=== PATIENT | female | born 1980 | race Caucasian/White ===

== ENCOUNTER → 2017-04-25 | Outpatient (CLI) | payer OTHER | LOC: FIMAGING 09:49 | PROVIDERS: ATTEND Obstetrics & Gynecology | DX: Z36 Encounter for antenatal screening of mother (principal); O09.522 Supervision of elderly multigravida, second trimester; Q04.8 Other specified congenital malformations of brain; Z3A.23 23 weeks gestation of pregnancy ==

== ENCOUNTER 2017-08-21 07:50 | Inpatient (IN) | payer OTHER ==
[2017-08-21] MEDS ORDERED: LR 1,000 ML IV PRN (07:59)
[2017-08-21] MEDS ORDERED: AMPICILLIN SODIUM 2 GM in NS 100 ML IV ONE (07:59)
[2017-08-21] MEDS ORDERED: TERBUTALINE SULFATE 1 MG/ML VIAL IV PRN (07:59)
[2017-08-21] MEDS ORDERED: EPSOM SALT 454 GM TP PRN (07:59)
[2017-08-21] MEDS ORDERED: OXYTOCIN/RINGERS LACTATE 1,000 ML IV PRN (07:59)
[2017-08-21] MEDS ORDERED: OLIVE OIL 118 ML BTL MISC PRN (07:59)
[2017-08-21] MEDS ORDERED: OXYTOCIN 20 UNIT in LR 1,000 ML IV PRN (08:40)
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
[2017-08-21 08:53] LABS: % IMMATURE GRANULYOCYTES 0.4 % (0.0-1.1); ABSOLUTE IMMATURE GRANULOCYTES 0.06 10^3/uL (0.00-0.10); ADD DIFF? NO; ADD MORPH? NO; ADD SCAN? NO; ATYPICAL LYMPHOCYTE FLAG 0 (0-99); FRAGMENT RBC FLAG 0 (0-99); HEMATOCRIT 40.3 % (38.0-47.0); HEMOGLOBIN 13.5 g/dL (12.6-16.3); LEFT SHIFT FLG 0 (0-99); LIPEMIA HEMOLYSIS FLAG 80 (0-99); MEAN CELL HEMOGLOBIN 28.7 pg (27.9-34.1); MEAN CELL HEMOGLOBIN CONCENTR. 33.5 g/dL (32.4-36.7); MEAN CELL VOLUME 85.6 fL (81.5-99.8); PLATELET CLUMPS FLAG 0 (0-99); PLATELET COUNT 283 10^3/uL (150-400); RED BLOOD CELL COUNT 4.71 10^6/uL (4.18-5.33); RED CELL DISTRIBUTION WIDTH 14.1 % (11.5-15.2)
--- NOTE | 2017-08-21 09:09 | OBPROG ---
Labor Progress Note Assessment/Plan: Assessment: Plan: Subjective/Intrapartum Course: 08/21/17 08:42 patient happy with nitrous oxide which is helping. feeling lots of pressure and urge to push occasionally with contractions. no change in cervix yet. status reassuring. - SVE Dilation (cm): 7 Effacement (%): 90 Station: +1 Membranes: Intact - Contraction Pattern Assessment Current Contraction Pattern: Regular - FHR Assessment [place] FHR (bpm): 140 FHR Pattern Variability: Moderate FHR Category: 1 - AP Antepartum Course: 08/21/17 08:43 initiated care at 9 weeks. dated by lmp equal to 9 week ultrasound. negative innatal and afp. [facility] ultrasound for ? CSP on anatomy US. CPS cleared by [facility] ICD10 Worksheet Patient Problems: Problems Problem Status Onset Normal spontaneous vaginal delivery Acute
--- NOTE | 2017-08-21 09:10 | OBPROG ---
Labor Progress Note Assessment/Plan: Assessment: Plan: Subjective/Intrapartum Course: 08/21/17 08:42 patient happy with nitrous oxide which is helping. feeling lots of pressure and urge to push occasionally with contractions. no change in cervix yet. status reassuring. 08/21/17 09:09 SROM then rapid progress to complete. pushed x 1 ctrx Objective: 08/21/17 08:20 - SVE Dilation (cm): 10 Effacement (%): 100 Station: +3 Membranes: Intact Amniotic Fluid Color: Clear Dilation Complete Date: 08/21/17 Dilation Complete Time: 08:49 - Contraction Pattern Assessment Current Contraction Pattern: Regular - FHR Assessment [place] FHR Pattern Variability: Moderate FHR Category: 1 - AP Antepartum Course: 08/21/17 08:43 initiated care at 9 weeks. dated by lmp equal to 9 week ultrasound. negative innatal and afp. [facility] ultrasound for ? CSP on anatomy US. CPS cleared by [facility] ICD10 Worksheet Patient Problems: Problems Problem Status Onset Normal spontaneous vaginal delivery Acute
[2017-08-21] MEDS ORDERED: DOCUSATE SODIUM 100 MG CAP PO PRN (09:11)
[2017-08-21] MEDS ORDERED: SIMETHICONE 80 MG TAB CHEW PO PRN (09:11)
[2017-08-21] MEDS ORDERED: HYDROCORTISONE 0.5% CREAM TP PRN (09:11)
[2017-08-21] MEDS ORDERED: HYDROCODONE/APAP 5/325 TAB PO PRN (09:11)
--- NOTE | 2017-08-21 09:16 | OBDEL ---
Info Type: Vaginal Presentation at Delivery: Vertex L&D Analgesia/Anesthesia Type: Nitrous GBS+: Yes Antibiotic Used for + GBS: Ampicillin Intrapartum Medications: Discontinued Medications Generic Name Dose Route Start Last Admin Trade Name Chas PRN Reason Stop Dose Admin Ampicillin Sodium 2 gm/ Sodium 110 mls @ 220 mls/hr 08/21/17 07:59 08/21/17 08:20 Chloride IV 08/21/17 08:28 110 mls ONCE ONE Administration Protocol - Hospital Course Intrapartum: 08/21/17 08:42 patient happy with nitrous oxide which is helping. feeling lots of pressure and urge to push occasionally with contractions. no change in cervix yet. status reassuring. 08/21/17 09:09 SROM then rapid progress to complete. pushed x 1 ctrx Indications for Delivery: Spontaneous Labor Vaginal Delivery - Delivery Provider Delivery Physician/CNM: Cristina Shafer - Labor and Delivery Onset of Contractions Date: 08/21/17 Onset of Contractions Time: 04:45 Onset of Contractions Type: Spontaneous Rupture of Membranes Date: 08/21/17 Rupture of Membranes Time: 08:44 Rupture of Membranes Type: Spontaneous Amniotic Fluid Color: Clear Dilation Complete Date: 08/21/17 Dilation Complete Time: 08:49 Placenta Delivery Date: 08/21/17 Placenta Delivery Time: 08:55 Total Hours of Labor: 4 Vaginal Sponge Count Correct: Yes Vaginal Needle Count Correct: Yes Vaginal Sweep Performed: Yes EBL: 100 Delivery Events: Nuchal Cord Delivery Comment: rapid progress to complete. pushed 1 contraction. delivery over an intact perineum. nuchal cord reduced on perineum [place] [facility] [place] Delivery Date: 08/21/17 Delivery Time: 08:51 JUNIOR: 08/21/17 Gestational Age: 40 week(s) and 0 day(s) Sex of : Male Score (1 Min): 8 Score (5 Min): 9 ICD10 Worksheet Patient Problems: Problems Problem Status Onset Normal labor and delivery Acute Normal spontaneous vaginal delivery Acute
[2017-08-21] MEDS: IBUPROFEN 600 MG TAB PO PRN ×3 (09:22→21:46)
[2017-08-21] MEDS ORDERED: AMPICILLIN SODIUM 1 GM in NS 100 ML IV SCH (12:00)
[2017-08-22] MEDS: IBUPROFEN 600 MG TAB PO PRN ×2 (03:47→10:01)
--- NOTE | 2017-08-22 09:18 | OBPP ---
Progress Note Assessment/Plan: Assessment: 37 yo WF PPD#1 s/p doing well. Plan: 08/22/17 09:11 Routine Care. Discharge home tomorrow. Subjective/ Course: 08/22/17 09:12 Ambulating. . Reports minimal lochia. Reports moderate uterine cramping and low-back pain. Objective: 08/21/17 08:20 Patient ABO/Rh A POSITIVE 08/21/17 08:20 Temp Pulse Resp BP Pulse Ox 36.8 C 89 18 136/84 H 95 08/21/17 20:00 08/21/17 20:00 08/21/17 14:25 08/21/17 20:00 08/21/17 12:20 Physical Exam - Physical Exam EENT: PERRL/EOMI Neck: non-tender, supple Respiratory: lungs clear, normal breath sounds Cardiac/Chest: regular rate, rhythm Abdomen: normal bowel sounds, non-tender, soft, other (Fundus firm, below umbilicus) Extremities: normal inspection Skin: normal color Neuro/Psych: oriented x 3
[2017-08-22] MEDS ORDERED: FLU VACC QS 2017-18 (3YR+)/PF 0.5 ML SYR (FLUARIX QUAD) IM ONE (11:56)
--- NOTE | 2017-08-22 12:57 | SOAPPROG ---
SOAP Progress Note Assessment/Plan: Assessment: 37 yo WF PPD#1 s/p doing well. Plan: 08/22/17 09:11 Routine Care. Discharge home tomorrow. 08/22/17 12:57 A/P: 37 yo PPD#1 with generalized malaise. 1. PIH labs, serial BPs 2. Flu swab 3. Supportive care 4. Suggested food with pain meds; consider hydrocodone instead of NSAIDs Subjective: I was called by RN on PP unit because patient reported not feeling well this morning. Akua reports nausea after eating and taking Ibuprofen today. She reports multiple vague complaints. These include diarrhea, back pain, subjective fever. She denies significant headache, vision changes or right upper quadrant pain. Objective: Vital Signs Temp Pulse Resp BP Pulse Ox 36.9 C 76 17 133/89 H 98 08/22/17 09:10 08/22/17 09:10 08/22/17 09:10 08/22/17 12:16 08/22/17 09:10 Laboratory Results 08/21/17 08:20 08/21/17 08/22/17 08/23/17 05:59 05:59 05:59 Output Total 100 Balance -100 Physical Exam - Physical Exam General Appearance: alert, no apparent distress, anxiety Neck: non-tender, supple Respiratory: chest non-tender, lungs clear Cardiac/Chest: regular rate, rhythm Abdomen: non-tender, soft Pelvic Exam: deferred Back: Normal inspection Skin: normal color, warm/dry Extremities: normal range of motion, non-tender, normal inspection Neuro/Psych: alert, normal mood/affect, oriented x 3 ICD10 Worksheet Patient Problems: Problems Problem Status Onset Normal labor and delivery Acute Normal spontaneous vaginal delivery Acute
[2017-08-22 15:56] LABS: ALANINE AMINOTRANSFERASE 27 IU/L (9-52); ASPARTATE AMINOTRANSFERASE 24 IU/L (14-46); BILIRUBIN,TOTAL 0.2 mg/dL (0.1-1.4); BILIRUBIN-CONJUGATED 0.2 mg/dL (0.0-0.5); CREATININE 0.5 mg/dL (0.6-1.0); GLOMERULAR FILTRATION RATE > 60; LACTATE DEHYDROGENASE 694 IU/L (313-618)
[2017-08-22 16:22] LABS: % IMMATURE GRANULYOCYTES 0.7 % (0.0-1.1); ABSOLUTE IMMATURE GRANULOCYTES 0.05 10^3/uL (0.00-0.10); ADD DIFF? NO; ADD MORPH? NO; ADD SCAN? NO; ATYPICAL LYMPHOCYTE FLAG 0 (0-99); FRAGMENT RBC FLAG 0 (0-99); HEMATOCRIT 33.1 % (38.0-47.0); HEMOGLOBIN 11.4 g/dL (12.6-16.3); LEFT SHIFT FLG 10 (0-99); LIPEMIA HEMOLYSIS FLAG 90 (0-99); MEAN CELL HEMOGLOBIN 29.2 pg (27.9-34.1); MEAN CELL HEMOGLOBIN CONCENTR. 34.4 g/dL (32.4-36.7); MEAN CELL VOLUME 84.9 fL (81.5-99.8); MEAN PLATELET VOLUME 10.9 fL (8.7-11.7); PLATELET CLUMPS FLAG 10 (0-99); PLATELET COUNT 205 10^3/uL (150-400); RED CELL DISTRIBUTION WIDTH 14.5 % (11.5-15.2)
[2017-08-22] MEDS: ACETAMINOPHEN 325 MG TAB PO PRN (22:37)
[2017-08-23] MEDS: ACETAMINOPHEN 325 MG TAB PO PRN (07:54)
[2017-08-23 09:39] VITALS: BP 128/85; PULSE 89; RESP 17; TEMP 97.9; O2SAT 93
[2017-08-23] MEDS ORDERED: IRON POLYSAC/IRON HEME 28 MG TAB PO SCH (10:00)
--- NOTE | 2017-08-23 10:31 | OBPP ---
Progress Note Assessment/Plan: Assessment:nipple intact well ff@u scant rubra lochia voiding without difficulty declines ibuprofen for pain relief discussed pih symptoms denies pih symptoms redraw pih labs today elevated uric acid yesterday diarrhea with and pp stool culture before discharge anemic elevated bp Plan:discharge instructions pih symptoms discussed, anemic, iron and pnv discussed, change of diet to assist diarrhea, depression, rest, pain management , bleeding pattern, pericare, ss infection, contraception, pelvic rest, lifting exercise, verbalized understanding of all of the above. 08/23/17 10:31 08/23/17 10:37 Subjective/ Course: 08/22/17 09:12 Ambulating. . Reports minimal lochia. Reports moderate uterine cramping and low-back pain. 08/23/17 10:27 Doing well denies difficulties. pain well managed. Declines use of ibuprofen for pain. Voiding without difficulties. Denies PIH symptoms. Swelling in lower extremitys is evolving and resolving. Overall doing well. Objective: 08/22/17 15:30 08/22/17 15:30 Patient ABO/Rh A POSITIVE 08/21/17 08:20 Uric Acid 7.0 mg/dL (2.5-6.8) H 08/22/17 15:30 Total Bilirubin 0.2 mg/dL (0.1-1.4) 08/22/17 15:30 Conjugated Bilirubin 0.2 mg/dL (0.0-0.5) 08/22/17 15:30 Unconjugated Bilirubin 0.0 mg/dL (0.0-1.1) 08/22/17 15:30 AST 24 IU/L (14-46) 08/22/17 15:30 ALT 27 IU/L (9-52) 08/22/17 15:30 Lactate Dehydrogenase 694 IU/L (313-618) H 08/22/17 15:30 Temp Pulse Resp BP Pulse Ox 36.6 C 89 17 128/85 H 93 08/23/17 09:00 08/23/17 09:00 08/23/17 09:00 08/23/17 09:00 08/23/17 09:00 Uterine Position/Fundal Height: At Umbilicus Uterine Tone: Firm Physical Exam - Physical Exam General Appearance: WD/WN, alert, no apparent distress Abdomen: other (ff@u) Extremities: normal range of motion, Ana's sign (negative bilaterally) DTR- Lower Extremities: Knee (R): 1+, Knee (L): 1+ (no clonus) Skin: normal color, warm/dry Neuro/Psych: no motor/sensory deficits, alert, normal mood/affect, oriented x 3
[2017-08-23 11:55] LABS: % IMMATURE GRANULYOCYTES 0.5 % (0.0-1.1); ABSOLUTE IMMATURE GRANULOCYTES 0.03 10^3/uL (0.00-0.10); ADD DIFF? NO; ADD MORPH? NO; ADD SCAN? NO; ATYPICAL LYMPHOCYTE FLAG 0 (0-99); FRAGMENT RBC FLAG 0 (0-99); HEMATOCRIT 35.6 % (38.0-47.0); HEMOGLOBIN 12.3 g/dL (12.6-16.3); LEFT SHIFT FLG 0 (0-99); LIPEMIA HEMOLYSIS FLAG 90 (0-99); MEAN CELL HEMOGLOBIN 29.1 pg (27.9-34.1); MEAN CELL HEMOGLOBIN CONCENTR. 34.6 g/dL (32.4-36.7); MEAN CELL VOLUME 84.4 fL (81.5-99.8); MEAN PLATELET VOLUME 10.8 fL (8.7-11.7); PLATELET CLUMPS FLAG 0 (0-99); PLATELET COUNT 240 10^3/uL (150-400); RED BLOOD CELL COUNT 4.22 10^6/uL (4.18-5.33); RED CELL DISTRIBUTION WIDTH 14.5 % (11.5-15.2)
[2017-08-23] MEDS ORDERED: FLU VACC QS 2017-18 (3YR+)/PF 0.5 ML SYR (FLUARIX QUAD) IM ONE (12:00)
[2017-08-23 12:09] LABS: ALANINE AMINOTRANSFERASE 30 IU/L (9-52); ASPARTATE AMINOTRANSFERASE 27 IU/L (14-46); BILIRUBIN,TOTAL 0.2 mg/dL (0.1-1.4); BILIRUBIN-CONJUGATED 0.2 mg/dL (0.0-0.5); CREATININE 0.6 mg/dL (0.6-1.0); GLOMERULAR FILTRATION RATE > 60; LACTATE DEHYDROGENASE 664 IU/L (313-618); URIC ACID 7.2 mg/dL (2.5-6.8)
== END 2017-08-23 15:33 | disposition home or self-care (01) | DRG 775 ==
LOC: FLD 07:50 → FOB 11:48
PROVIDERS: ADMIT Obstetrics & Gynecology; ATTEND Obstetrics & Gynecology
PROC: 10E0XZZ Delivery of Products of Conception, External Approach (ICD-10-PCS; principal; 2017-08-21)
DX: O69.81X0 Labor and delivery complicated by cord around neck, without compression, not applicable or unspecified (principal); O99.214 Obesity complicating childbirth; O99.824 Streptococcus B carrier state complicating childbirth; Z3A.40 40 weeks gestation of pregnancy; Z37.0 Single live birth; Z23 Encounter for immunization
CPT/HCPCS: G0008; J0290; J2590